=== PATIENT | male | born 1955 | race Caucasian/White ===

== ENCOUNTER 2017-02-21 11:16 | Emergency (ER) | payer MEDICAID ==
[2017-02-21 11:17] VITALS: BMI 27.9
--- NOTE | 2017-02-21 12:22 | C.PDOC ---
History Of Present Illness 61 year old male presents to the ED for evaluation of persistent left sinus pain and congestion x 2 weeks. Patient found no relief with [id number] Advil sinus cold medications. Patient denies fever. denies history of seasonal allergies, frequent sinusitis or other associated symptoms. PERSIST L SINUS PAIN, CONGESTION X 2 WEEKS. NO RELIEF W OTC ADVIL SINUS COLD MEDS. NO FEVER. DENIES HO SEASONAL ALLERGIES, FREQ HO SINUSITIS, OTHER ASSOC SX EXAM HEENT +L FRONTAL/MAX SINUS TEND. +NASAL MATTHIEU L SIDE. NO RHINORRHEA REMAINDER NEG Time Seen by Provider: 02/21/17 12:02 Chief Complaint (Nursing): Cough, Cold, Congestion History Per: Patient Onset/Duration Of Symptoms: Other (2 weeks ) Current Symptoms Are (Timing): Still Present Past Medical History Reviewed: Historical Data, Nursing Documentation, Vital Signs Vital Signs: Last Vital Signs Temp 97.4 F L 02/21/17 12:33 Pulse 68 02/21/17 12:33 Resp 16 02/21/17 12:33 BP 109/67 02/21/17 12:33 Pulse Ox 98 02/21/17 12:59 - Medical History PMH: Arthritis (HANDS AND KNEES), Gastritis, HTN Surgical History: Endoscopy - [facility] Procedures ENDOSC POLYPECTOMY OF LG INTEST (09/11/14) Family History: States: Unknown Family Hx - Social History Hx Tobacco Use: No Hx Alcohol Use: No Hx Substance Use: No - Immunization History Hx Tetanus Toxoid Vaccination: No Hx Influenza Vaccination: Yes Hx Pneumococcal Vaccination: No Review Of Systems Constitutional: Negative for: Fever, Chills ENT: Positive for: Other (persistent left sinus pain and congestion ) Physical Exam - Physical Exam Appears: Non-toxic, No Acute Distress Skin: Normal Color, Warm, Dry Head: Tenderness (to left frontal/maxillary sinus ) Eye(s): bilateral: Normal Inspection Ear(s): Bilateral: Normal Nose: No Discharge, Other (left sided nasal congestion ) Throat: Normal, No Erythema, No Exudate Neck: Supple Chest: Symmetrical, No Deformity, No Tenderness Cardiovascular: Rhythm Regular, No Murmur Respiratory: Normal Breath Sounds, No Rales, No Rhonchi, No Wheezing Extremity: Normal ROM, Capillary Refill (less than 2 seconds ) Neurological/Psych: Oriented x3, Normal Speech, Normal Cognition Gait: Steady ED Course And Treatment O2 Sat by Pulse Oximetry: 98 (on RA) Pulse Ox Interpretation: Normal Disposition Counseled Patient/Family Regarding: Diagnosis, Need For Followup, Rx Given - Disposition Referrals: YOUR,PMD [Other] Disposition: HOME/ ROUTINE Disposition Time: 12:18 Condition: GOOD Prescriptions: Acetaminophen [Tylenol Extra Strength] 2 tab PO Q6 #30 tablet Amoxicillin/Clavulanate [Augmentin 875 MG-125 MG] 1 tab PO BID #14 tab Desloratadine/Pseudoephedrine [Clarinex-D12 Hour 2.5 mg-120 mg] 1 t12 PO BID PRN #30 t12 PRN Reason: Sinus Symptoms Fluticasone Propionate [Flonase] 2 spr LUCY DAILY #1 bottle Sodium Chloride [Saline Nose Luebbering] 2 spray NS Q3 PRN #1 spray PRN Reason: Sinus Symptoms Instructions: Sinusitis (ED) Forms: [employer] (Lebanese), Work Excuse Print Language: MOROCCAN - Clinical Impression Clinical Impression: Sinusitis - Scribe Statement The provider has reviewed the documentation as recorded by the Scribe (Arabella Mcduffie) Provider Attestation: All medical record entries made by the Scribe were at my direction and personally dictated by me. I have reviewed the chart and agree that the record accurately reflects my personal performance of the history, physical exam, medical decision making, and the department course for this patient. I have also personally directed, reviewed, and agree with the discharge instructions and disposition.
[2017-02-21 12:34] VITALS: BP 109/67; PULSE 68; RESP 16; TEMP 97.4
[2017-02-21 12:48] VITALS: O2SAT 98
== END 2017-02-21 12:50 | disposition home or self-care (01) ==
LOC: C.ER 11:16
DX: J32.9 Chronic sinusitis, unspecified (principal)

== ENCOUNTER 2018-07-09 10:05 | Emergency (ER) | payer MEDICAID ==
[2018-07-09 10:05] VITALS: BMI 27.9
[2018-07-09] MEDS ORDERED: Fluorescein 1 mg Ophthalmic Strip ONE (10:32)
--- NOTE | 2018-07-09 10:41 | C.PDOC ---
History Of Present Illness 62 y/o male, with history of hypertension, diabetes, and high cholesterol, presents to ED complaining of bilateral eye redness and itchiness since yesterday morning. Patient states he woke up and noticed his eyes were red. He denies any cough, sneezing, headache, dizziness, SOB, or other associated symptoms. Time Seen by Provider: 07/09/18 10:13 Chief Complaint (Nursing): Eye Problem History Per: Patient History/Exam Limitations: no limitations Onset/Duration Of Symptoms: Days Current Symptoms Are (Timing): Still Present Past Medical History Reviewed: Historical Data, Nursing Documentation, Vital Signs Vital Signs: Last Vital Signs Temp 98.4 F 07/09/18 10:11 Pulse 68 07/09/18 10:11 Resp 20 07/09/18 10:11 BP 107/62 07/09/18 10:11 Pulse Ox 99 07/09/18 10:11 - Medical History PMH: Arthritis (HANDS AND KNEES), Gastritis, HTN Denies: Chronic Kidney Disease Surgical History: Endoscopy - [facility] Procedures ENDOSC POLYPECTOMY OF LG INTEST (09/11/14) Family History: States: No Known Family Hx - Social History Hx Tobacco Use: No Hx Alcohol Use: No Hx Substance Use: No - Immunization History Hx Tetanus Toxoid Vaccination: No Hx Influenza Vaccination: Yes Hx Pneumococcal Vaccination: No Review Of Systems Except As Marked, All Systems Reviewed And Found Negative. Constitutional: Negative for: Fever, Chills Eyes: Positive for: Redness (and itchiness of bilateral eyes). Negative for: Vision Change ENT: Negative for: Nose Congestion Respiratory: Negative for: Cough, Shortness of Breath Gastrointestinal: Negative for: Nausea, Vomiting Skin: Negative for: Rash Physical Exam - Physical Exam Appears: Non-toxic, No Acute Distress Skin: Warm, Dry Head: Normacephalic Eye(s): bilateral: EOMI, Other (conjunctival erythema) Oral Mucosa: Moist Neck: Supple Cardiovascular: Rhythm Regular, No Murmur Respiratory: Normal Breath Sounds, No Rales, No Rhonchi, No Wheezing Extremity: Bilateral: Atraumatic Neurological/Psych: Oriented x3, Normal Speech, Normal Cognition ED Course And Treatment O2 Sat by Pulse Oximetry: 99 (RA) Pulse Ox Interpretation: Normal Disposition - Disposition Referrals: Elijah Naqvi [Staff Provider] - Disposition: HOME/ ROUTINE Disposition Time: 10:38 Condition: GOOD Additional Instructions: Apply Polytrim every three hours for 7-10 days Prescriptions: Polymyxin/Trimethoprim Sulfate [Polytrim Ophth Soln] 1 drop OU Q3 #1 bottle Forms: [employer] (Maltese) - Clinical Impression Clinical Impression: Conjunctivitis - Scribe Statement The provider has reviewed the documentation as recorded by the Dayanaraibe Karmen Olivares Provider Attestation: All medical record entries made by the Dayanaraibe were at my direction and personally dictated by me. I have reviewed the chart and agree that the record accurately reflects my personal performance of the history, physical exam, medical decision making, and the department course for this patient. I have also personally directed, reviewed, and agree with the discharge instructions and disposition.
[2018-07-09 10:48] VITALS: BP 107/62; PULSE 68; RESP 20; TEMP 98.4; O2SAT 99
== END 2018-07-09 11:00 | disposition home or self-care (01) ==
LOC: C.ER 10:05
DX: H10.9 Unspecified conjunctivitis (principal)